=== PATIENT | female | born 1970 | race African-American/Black ===

== ENCOUNTER 2017-09-24 06:23 | Day surgery (SDC) | payer BC, OTHER ==
--- NOTE | 2017-09-22 15:19 | HP ---
[facility] - Chief Complaint Chief Complaint: 47 year old patient is admitted to have a D?C for irregular uterine bleeding for the month. History of Present Illness: This patient has had heavy bleeding with the passage of blood clotts on and off since 08/23/17. History Source: Patient Limitations to Obtaining History: No Limitations - Past Medical History WEL[employer]ENT: No: Alzheimer's, CVA, Dementia, Migraine, Multiple Sclerosis, Peripheral Neuropathy, Parkinson's, Seizure, Syncope, TIA, Vertigo, Other Cardiovascular: No: AFIB, Aneurysm, Aortic Insufficiency, Aortic Stenosis, CAD, CHF, Deep Vein Thrombosis, HTN, Hyperlipdemia, PA, Mitral Insufficiency, Mitral Stenosis, Murmur, Pulmonary Hypertension, Other Pulmonary: Yes: Asthma Gastrointestinal: No: Ascites, Cancer, Constipation, Crohn's Disease, Diverticulitis, Diverticulosis, Esophageal Varices, Gastritis, GERD, GI Bleed, Hemorrhoids, Hiatal Hernia, Inflamatory Bowel Disease, Irritable Bowel Disease, Pancreatitis, Peptic Ulcer Disease, Ulcerative Colitis, Other Hepatobiliary: No: Cirrhosis, Cholelithiasis, Cholecystitis, Choledocholithiasis , Hepatitis A, Hepatitis B, Hepatitis C, Other Renal/: No: Renal Failure, Renal Inusuff, BPH, Cancer, Hematuria, Hemodialysis , Neurogenic Bladder, Renal Calculi, UTI, Other Reproductive: No: Ectopic , Endometriosis, Fibroids, PID, Polycystic Ovary Syndrome, Postmenopausal, Other ...: No ...: 3 ...Para: 2 Heme/Onc: No: Anemia, B12 Deficiency, Bleeding Disorder, Cancer, Current Chemotherapy, Current Radiation Therapy, Hemochromatosis, Hypercoaguable State, Myeloproliferative Synd, Sickle Cell Disease, Sickle Cell Trait, Thrombocytopenia, Other Infectious Disease: No: AIDS, C-Diff, Herpes Zoster, HIV, MRSA, STD's, Tuberculosis, VREF, Other Musculoskeletal: No: Bursitis, Chronic low back pain, Hemiparesis, Hemiplegia, Osteoarthritis, Paraplegia, Other Rheumatology: No: Fibromyalgia, Gout, Lupus, Rheumatoid Arthritis, Sarcoidosis, Vasculitis, Other ENT: No: Allergic Rhinitis, Sinusitis, Other Endocrine: No: Charles's Disease, Nohemi's Disease, Diabetes Insipidus, Diabetes Mellitus, Hyperparathyroidism, Hyperthyroidism, Hypothyroidism, Osteopenia, SIADH, Other Dermatology: No: Basal Cell, Cellulitis, Eczema, Melanoma, Psoriasis, Squamous Cell, Other Satellite Physical Exam - Physical Examination General Appearance: Well Nourished, Well Developed, Alert & Oriented x3 ENT: Clear, No Discharge, No masses Lung: Clear to auscultation Heart: Regular rate & rhythm, Normal S1, Normal S2 Breasts: Soft, Non-Tender, No masses bilaterally Abdomen: Soft, No tenderness, No CVA Extremities: No edema, No tenderness/swelling Pelvic Exam: Within normal limits External Genitalia, Within normal limits Vagina, Within normal limits Cervix, Within normal limits Uterus, Within normal limits [facility]: Intact, Alert, Oriented Satellite Impression/Plan - Impression/Plan Impression: Abnormal uterine bleeding Operative Procedure: Hysteroscopy with D/C Date to be Performed: 09/24/17
[2017-09-23 09:20] VITALS: BMI 34.9
[2017-09-24] MEDS ORDERED: MIDAZOLAM HCL 2 MG/2 ML SINGLE DOSE VIAL ONE (07:24)
[2017-09-24] MEDS ORDERED: PROPOFOL 20 ML ONE ×2 (07:38→07:54)
[2017-09-24] MEDS ORDERED: ONDANSETRON 4 MG/2 ML VIAL ONE (07:43)
[2017-09-24] MEDS ORDERED: DEXAMETHASONE SOD PHOSPHATE 4 MG/1 ML VIAL ONE (07:43)
[2017-09-24] MEDS ORDERED: oxyCODONE HCL 5 MG TABLET PO PRN (08:20)
[2017-09-24] MEDS ORDERED: ALBUTEROL SO4 0.083% IH SOL 2.5 MG/3 ML VIAL.NEB. NEB ONE (08:20)
[2017-09-24] MEDS ORDERED: ONDANSETRON 4 MG/2 ML VIAL IVPUSH PRN (08:20)
[2017-09-24] MEDS ORDERED: LACTATED RINGERS SOLUTION 1,000 ML IV SCH (08:30)
--- NOTE | 2017-09-24 08:54 | OP ---
DATE OF OPERATION: 09/24/2017 PREOPERATIVE DIAGNOSIS: Abnormal uterine bleeding. POSTOPERATIVE DIAGNOSIS: Abnormal uterine bleeding. PROCEDURE: Hysteroscopy D and C. SURGEON: VICENTE GALVAN MD ESTIMATED BLOOD LOSS: Approximately 5 mL. DESCRIPTION OF PROCEDURE: The patient was brought to the operating room, placed in the supine position, given anesthesia by the lead technician, placed in the lithotomy position, prepped and draped in the usual manner. The patient was examined. The uterus was noted to be anteverted, normal size. Adnexa negative. The speculum was placed into the vagina. The anterior lip of the cervix was grasped with a tenaculum after the vagina and the vulva area was prepped with Betadine. The uterus was sounded to 9.5 cm. The cervix was then dilated to allow hysteroscopy. Hysteroscopic examination of the endometrium reveals normal-appearing endometrium. No polyps, no fibroids noted. A D and C was carried out with a medium-sized curette. Abundant tissue was obtained and sent to Pathology for analysis. This was followed by an endocervical curettage and scant tissue was obtained from the endocervical curettage. The hemostasis was good. The operation was terminated by releasing the cervix from the tenaculum and removing the speculum from the vagina. The patient's hemostasis was excellent. The patient did well and was transferred to the recovery room in good condition. VICENTE GALVAN M.D. [id number]
[2017-09-24 10:30] VITALS: TEMP 98.3
[2017-09-24 11:09] VITALS: BP 124/83; PULSE 80
--- NOTE | 2017-09-27 18:10 | PATH ---
Surgical Pathology Report Patient Name: FAHAD DE LEÓN [facility]. Rec. #: [id number] /Age/Gender: 1970 (Age: 47) / F Account: [id number] Location: [facility] SURGICAL Taken: 09/24/2017 Received: 09/24/2017 Reported: 09/27/2017 Physicians: Juan Colunga M.D. Specimen(s) Received A: ENDOMETRIAL CURETTINGS B: ENDOCERVICAL CURETTINGS Clinical History Intermenstrual bleeding Postoperative diagnosis: Abnormal uterine bleeding Final Diagnosis A. ENDOMETRIAL TISSUE, EMC, DILATION AND CURETTAGE: FRAGMENTS OF ENDOMETRIAL POLYP, PROLIFERATIVE ENDOMETRIUM, LOWER UTERINE SEGMENT, AND SCANT BENIGN CERVICAL TISSUE. B. ENDOCERVICAL TISSUE, ECC, DILATION AND CURETTAGE: FRAGMENTS OF SCANT ENDOCERVICAL TISSUE AND LOWER UTERINE SEGMENT. Electronically Signed Tammy Renteria M.D. Gross Description A. Received in formalin labeled "EMC," is a 2.3 x 2.1 x 0.3 cm aggregate of newell-brown, polypoid to fragmented soft tissue fragments. The formalin is filtered and the specimen is entirely submitted in one cassette. B. Received in formalin labeled "ECC," is a 0.7 x 0.6 x 0.1 cm aggregate of newell soft tissue fragments admixed with mucus. The formalin is filtered and the specimen is entirely submitted in one cassette. /09/24/2017 saudi09/24/2017
== END 2017-09-24 11:05 | disposition home or self-care (01) ==
LOC: JASU-SURG 06:23
PROVIDERS: ATTEND Obstetrics & Gynecology
PROC: 0UDB7ZX Extraction of Endometrium, Via Natural or Artificial Opening, Diagnostic (ICD-10-PCS; principal; 2017-09-24 07:30)
PROC: 0UJD8ZZ Inspection of Uterus and Cervix, Via Natural or Artificial Opening Endoscopic (ICD-10-PCS; 2017-09-24 07:30)
DX: N93.8 Other specified abnormal uterine and vaginal bleeding (principal)
CPT/HCPCS: 84703; 86850; 86900; 86901; 88305-TC; 94760